=== PATIENT | female | born 1960 | race Caucasian/White ===

== ENCOUNTER 2025-03-26 17:29 | Emergency (ER) | payer OTHER, SELFPAY ==
--- OUTSIDE RECORDS SUMMARY | 2025-03-07 08:20 | XMS_ITS | Encounter Summary ---
Author Organization [facility] Address [address] [place] [address] Care Team Providers Care Field Staff Manager Name Role Phone Fan John MD Primary Care Provider + [phone] Encounter Details Date Type Department Care Team (Late st Contact Info) Description 03/07/2025 8:20 AM CDT Lab Visit Laboratory at [address] [id number] Hypothyroidism, unspecified type (HRC); Elevated ALT measurement; Type 2 diabetes mellitus without complication, without long-term current use of insulin (HRC) Social History Tobacco Use Types Packs/Day Years Used Date Smoking Tobacco: Never Smokeless Tobacco: Never Alcohol Use Standard Drinks/Week Comments Not Currently 1 (1 standard drink = 0.6 oz pur e alcohol) Once a week PHQ-2 Answer Date Recorded PHQ-2 Score 0 07/12/2024 Comments No Sex and Gender Information Value Date Recorded Sex Assigned at Female 01/11/2025 11:19 AM CDT Legal Sex Female 4:58 AM CDT Gender Identity Female 01/11/2025 11:19 AM CDT Sexual Orientation Straight 01/11/2025 11 :19 AM CDT 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 on file Not on file documented as of this encounter Plan of Treatment Not on file documented as of this encounter Procedures Procedure Name Priority Date/Time Associated Diagnosis Comments HGB A1C Routine 03/07/2025 8:39 AM CDT Type 2 diabetes mellitus without complication, without long-term current use of insulin (HRC) TSH, SENSITIVE Routine 03/07/2025 8:22 AM CDT Hypothyroidism, unspecified type (HRC) ALT (SGPT) Routine 03/07/2025 8:22 AM CDT Elevated ALT measurement documented in this encounter Results * (ABNORMAL) Hgb A1C (03/07/2025 8:39 AM CDT) Hemoglobin A1C 6.3(H) <=5.6 % 03/07/2025 11:53 AM CDT [facility] Estimated Average Glucose (Calc) 134 < 117 mg/dL 03/07/2025 11:53 AM CDT [facility] Comment:Estimated average gl ucose (eAG) converts A1c into glucose units (mg/dL) and estimates average glucose over the past approximately 3 months. The eAG reference interval (<117 mg/dL) corresponds to an A1c of <5.7%. Blood Venipuncture / Unknown 03/07/2025 8:39 AM CDT 03/07/2025 8:39 AM CDT Narrative [facility] - 03/07/2025 11:53 AM CDT For patients not previously diagnosed with diabetes: 5.7-6.4%: Increased risk for diabetes 6.5% and greater: Diagnostic for diabetes For patients diagnosed with diabetes: <8.0%: Goal of therapy for ages 18-75 Clinicians may recommend a higher or lower goal for specific individuals. us Fan John MD LAB_1 Final Result [facility] [address] * (ABNORMAL) ALT (SGPT) (03/07/2025 8:22 AM CDT) ALT (SGPT) 57(H) 0 - 55 U/L 03/07/2025 11:53 AM CDT [facility] Blood Venipuncture / Unknown 03/07/2025 8:22 AM CDT 03/07/2025 8:22 AM CDT Fan John MD LAB_1 Final Result Performing Organization Address [facility] Co de Phone Number [facility] [address] * (ABNORMAL) TSH (03/07/2025 8:22 AM CDT) TSH, Sensitive 5.75(H) 0.30 - 4.50 uIU/mL 03/07/2025 12:06 PM CDT [facility] Blood Venipuncture / Unknown 03/07/2025 8:22 AM CDT 03/07/2025 8:22 AM CDT Fan John MD LAB_1 Final Result Performing Organization Address [facility] Co de Phone Number [facility] [address] documented in this encounter Visit Diagnoses Diagnosis Hypothyroidism, unspecified type (HRC) Elevated ALT measurement Nonspecific elevation of levels of transaminase or lactic acid dehydrogenase (LDH) Type 2 diabetes mellitus without complication, without long-term current use of insulin (HRC) documented in this encounter Care Teams Field Staff Manager Relationship Specialty [place] [address] [place] [address] PCP - General Family Practice 08/21/22 documented as of this encounter
--- OUTSIDE RECORDS SUMMARY | 2025-03-12 15:45 | XMS_ITS | Encounter Summary ---
[facility] Address [address], [place] [address] Care Team Providers Care Energy Director Name Role Phone Fan John MD Primary Care Provider [phone] Reason for Visit * Reason Comments RESULTS, TEST Entered automaticall y based on patient selection in [employer] 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
[2025-03-26 17:47] VITALS: BP 138/85; PULSE 89; RESP 18; TEMP 36.2; O2SAT 94; BMI 30.4
[2025-03-26 18:06] LABS: Appearance Urine Clear (Clear)
--- OUTSIDE RECORDS SUMMARY | 2025-03-26 18:22 | XMS_ITS | Encounter Summary ---
Author Organization [facility] Address [address] [address] Care Team Providers Care Senior Ssis Developer Name Role Phone Fan John MD Primary Care Provider [phone] Encounter Details Date Type Department Care Team (Latest Contact Info) Description 12/07/1996 Orders Only Nevaeh Charles Social History Tobacco Use Types Packs/Day Years Used Date Smoking Tobacco: Never Assessed Comments Unknown Sex and Gender Information Value Date Recorded Sex Assigned at Female 01/11/2025 11:19 AM CDT Legal Sex Female 4:58 AM CDT Gender Identity Female 01/11/2025 11:19 AM CDT Sexual Orientation Straight 01/11/2025 11 :19 AM CDT documented as of this encounter Plan of Treatment Not on file documented as of this encounter Visit Diagnoses Not on filedocumented in this encounter Care Teams Senior Ssis Developer Relationship Specialty [place] [address] [place] [address] PCP - General Family Practice 08/21/22 documented as of this encounter
--- OUTSIDE RECORDS SUMMARY | 2025-03-26 18:22 | XMS_ITS | Encounter Summary ---
Author Organization Counts include 234 beds at the [facility] Address [address], [place] [address] Care Team Providers Care Health Care Liaison Name Role Phone Fan John MD Primary Care Provider [phone] Encounter Details Date Type Department Care Team (Latest Contact Info) Description 12/08/1997 Orders Only Marc Banks MD Social History Tobacco Use Types Packs/Day Years [...] on filedocumented in this encounter Care Teams Health Care Liaison Relationship Specialty [place] [address] [place] [address] PCP - General Family Practice 08/21/22 documented as of this encounter
--- OUTSIDE RECORDS SUMMARY | 2025-03-26 18:22 | XMS_ITS | Encounter Summary ---
Author Organization [facility] Address [address] [address] Care Team Providers Care Pie Topper Name Role Phone Fan John MD Primary Care Provider [phone] Encounter Details Date Type Department Care Team (Latest Contact Info) Description 01/26/1997 Orders Only Nevaeh Charles Social History Tobacco [...] on filedocumented in this encounter Care Teams Pie Topper Relationship Specialty [place] [address] [place] [address] PCP - General Family Practice 08/21/22 documented as of this encounter
--- OUTSIDE RECORDS SUMMARY | 2025-03-26 18:22 | XMS_ITS | Encounter Summary ---
Author Organization [facility] Address [address], [place] [address] Care Team Providers Care Tube Cutter Operator Name Role Phone Fan John MD Primary Care Provider + [phone] Encounter Details Date Type Department Care Team (Late st Contact Info) Description 12/24/2024 [facility] [address] [place] [address] [address], [place] [address] [place], [place] [id number] Social History Tobacco Use Types Packs/Day Years Used Date Smoking Tobacco: Never Smokeless Tobacco: Never Alcohol Use Standard Drinks/Week Comments Yes 1.7 (1 standard drink = 0.6 oz p ure alcohol) 3x/wk PHQ-2 Answer Date Recorded PHQ-2 Score 0 07/12/2024 Comments No Sex and Gender Information Value Date Recorded Sex Assigned at Female 01/11/2025 11:19 AM CDT Legal Sex Female 4:58 AM CDT Gender Identity Female 01/11/2025 11:19 AM CDT Sexual Orientation Straight 01/11/2025 11 :19 AM CDT 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
--- OUTSIDE RECORDS SUMMARY | 2025-03-26 18:22 | XMS_ITS | Encounter Summary ---
Author Organization [facility] Address [address], [place] [address] Care Team Providers Care Grades 1 Through 5 Teacher Name Role Phone Fan John MD Primary Care Provider [phone] Encounter Details Date Type Department Care Team (Latest Contact Info) Description 05/09/1997 Orders Only Esvin Reyes MD Social History Tobacco Use Types Packs/Day [...] on filedocumented in this encounter Care Teams Grades 1 Through 5 Teacher Relationship Specialty [place] [address] [place] [address] PCP - General Family Practice 08/21/22 documented as of this encounter
--- OUTSIDE RECORDS SUMMARY | 2025-03-26 18:22 | XMS_ITS | Encounter Summary ---
Author Organization [facility] Address [address], [place] [address] Care Team Providers Care Wide Area Network Systems Administrator Name Role Phone Fan John MD Primary Care Provider [phone] Encounter Details Date Type Department Care Team (Latest Contact Info) Description 07/03/1996 Orders Only Bozena Garza Social History Tobacco Use Types Packs/Day Years [...] on filedocumented in this encounter Care Teams Wide Area Network Systems Administrator Relationship Specialty [place] [address] [place] [address] PCP - General Family Practice 08/21/22 documented as of this encounter
--- OUTSIDE RECORDS SUMMARY | 2025-03-26 18:22 | XMS_ITS | Clinical Summary ---
Author Organization [facility] Address [address] [address] Care Team Providers Care Jig And Fixture Maker Name Role Phone Fan John MD Primary Care Provider + [phone] Source Comments You are receiving this document as you are listed as the primary care provider,follow-up provider, or the patient has been referred to you for consultation.This is in compliance with the Medicare andMedicaid EHR Incentive Program,which states Providers who transition their patient to another setting of careor provider of care or refers their patient to another provider of care shouldprovide summary care record for each transition of care or referral. [employer] Allergies Active Allergy Reactions Criticality Noted Date Comments Corticosteroids 10/10/2000 Methylprednisolone Headache migraines Hydrocodone-Acetaminophen Nausea And Vomiting 0 11/27/2016 Paroxetine Prednisone Omeprazole Magnesium Dizziness,Headache, N ausea,Vomiting High 11/02/2008 Serotonin Reuptake Inhibitor s (Ssris) 10/10/2000 Medications cholecalciferol (VITAMIND3) 25 MCG (1000 UT) capsule Take 2 Capsules (2,000 Units) by mouth daily. Active vitamin E 200 UNITS capsule Take 1 Capsule (200 Units) by mouth daily. 017 Active amLODIPine (NORVASC) 5 MG tabletIndications:Esse ntial hypertension (HRC) Take 1 Tablet (5 mg) by mouth daily. 90 Tablet 3 024 Active rosuvastatin (CRESTOR) 10 MG tabletIndications:Pure hypercholesterolemia Take 1 Tablet (10 mg) by mouth daily. 90 Tablet 3 024 Active metFORMIN XR (GLUCOPHAGE XR) 500 MG 24 hour release tabletIndications:Type 2 diabetes mellitus without complication, without long-term current use of insulin (HRC) Take 1 Tablet (500 mg) by mouth every evening with a meal. 90 Tablet 3 024 Active hydroCHLOROthiazide (ORETIC) 25 MG tabletIndications:Esse ntial hypertension (HRC) Take 1 Tablet (25 mg) by mouth daily. 90 Tablet 3 024 Active potassium chloride 20 MEQ/15ML (10%) solutionIndications:Es sential hypertension (HRC) TAKE 15ML BY MOUTH DAILY W/ MEAL.MIX EACH DOSE WITH AT LEAST 120ML OF COLD WATER OR JUICE BEFORE ADMINISTRAT ION. 450 mL 11 024 Active levothyroxine (SYNTHROID) 88 MCG tabletIndications:Hypo thyroidism, unspecified type (HRC) Take 1 Tablet (88 mcg) by mouth daily. 60 Tablet 025 Active levothyroxine (SYNTHROID) 88 MCG tabletIndications:Hypo thyroidism, unspecified type (HRC) Take 1 Tablet (88 mcg) by mouth daily. 90 Tablet 025 2024 Discontinued levothyroxine (SYNTHROID) 88 MCG tabletIndications:Hypo thyroidism, unspecified type (HRC) TAKE 1 TABLET BY MOUTH EVERY DAY - BRAND SYNTHROID IS NOT COVERED BY INSURANCE 15 Tablet 025 2024 Discontinued( *Med change OR same med OR reorder, new dose/directio ns) Active Problems Problem Noted Date Diagnosed Date Type 2 diabetes mellitus wit hout complication, without long-term current use of insulin 06/24/2023 Atypical chest pain 08/25/2018 Cervical cancer screening 04/23/2016 Overview (03/26/2017): From visit on 04/18/16: History of abnormal pap tests? Yes; Age: 2010 ( don't see anything on her flowsheet from 2011, but I do see she had CIN1 in 1999) 2009 NILM, neg HPV 2011 NILM 2015 NILM, neg HPV 55 y.o. Plan: Cotesting 04/2021 ; Pap test history Insomnia 04/18/2016 Increased risk of breast cancer 04/18/2016 Urticaria 08/21/2010 Overview (03/26/2017): Urticaria.tomatoes,squash Hypothyroidism 08/01/2008 Overview (05/04/2015): [facility] Family history of coronary artery disease 2007 Hereditary and idiopathic peripheral neuropathy 09/12/2006 Overview (05/04/2015): [facility] Family history of diabetes mellitus 09/12/2006 Obesity 08/29/2006 Overview (05/04/2015): [facility] Essential hypertension 02/18/2003 Overview (05/04/2015): [facility] Pure hypercholesterolemia 02/18/2003 Encounters Date Type Department Care Team Description 03/15/[address] [phone] Fan John MD Refill; ERRONEOUS ENTRY 03/12/2025 3:45 PM CDT E-Visit [address] [phone] Fan John MD Dx: Hypothyroidism, unspecified type (HRC) 03/10/2025 Results Follow-Up [address] [phone] Fan John MD 03/07/2025 8:20 AM CDT Lab Visit Laboratory at [address] [phone] Hypothyroidism, unspecified type (HRC); Elevated ALT measurement; Type 2 diabetes mellitus without complication, without long-term current use of insulin (HRC) 02/28/[address] [phone] Fan John MD Refill (SYNTHROID 88 MCG tablet [Pharmacy Med Name: SYNTHROID 88 MCG TABLET]) 01/19/2025 9:15 AM CDT Therapy [facility] [address] [address] Sandhya Draper, PT Acute pain of right knee (Primary Dx); Acute right ankle pain; Status post fall 01/18/2025 9:00 AM CDT Office Visit [facility] [address] [place] [phone] Landry Chavez, FLORESITA Right knee pain, unspecified chronicity (Primary Dx); Primary osteoarthritis of right knee 01/13/2025 10:15 AM CDT Therapy [facility] [place] [id number] [place] [id number] Mary Anderson, PT Acute pain of right knee (Primary Dx); Acute right ankle pain; Status post fall 01/11/2025 9:00 AM CDT Office Visit [facility] [id number] [place] [phone] Landry Chavez PA-C Right knee pain, unspecified chronicity (Primary Dx); Primary osteoarthritis of right knee 01/11/2025 Telephone [facility] [address] [place] [phone] Landry Chavez PA-C Prior Authorization Request 12/31/2024 9:00 AM CDT Office Visit [facility] [id number] [place] [phone] Catracho Downs R, DO Complex tear of medial meniscus of right knee as current injury, initial encounter (Primary Dx); Acute pain of right knee 12/31/2024 8:30 AM CDT Ancillary Procedure [facility] [address] [address] [place] [address] [phone] Aleksey Thomson MD Injury of right knee, leg ankle and foot, initial encounter; Internal derangement of right knee; Effusion of right knee 12/28/2024 5:25 PM CDT Ancillary Procedure [facility] [address] [place] [phone] Aleksey Thomson MD Injury of right knee, leg ankle and foot, initial encounter 12/28/2024 5:20 PM CDT Ancillary Procedure [facility] [address] [address] [address] [place] [phone] Aleksey Thomson MD Injury of right knee, leg ankle and foot, initial encounter 12/28/2024 5:10 PM CDT Office Visit [facility] [address] [place] [phone] Aleksey Thomson MD Injury of right knee, leg ankle and foot, initial encounter; Internal derangement of right knee; Effusion of right knee 12/28/2024 3:50 PM CDT Office Visit [address] [phone] Fan John MD Hypothyroidism, unspecified type (HRC) (Primary Dx); Dislocation of right knee, initial encounter; Elevated ALT measurement; Type 2 diabetes mellitus without complication, without long-term current use of insulin (HRC) 12/27/2024 10:10 AM CDT E-Visit [address] [phone] Fan John MD Chief Comp: QUESTIONS, GENERAL 12/24/2024 Results Follow-Up [facility] [address] [place] [address] Cami Rincon PA-C from Last 3 Months Immunizations Immunization Administration Dates Next Due Flu Vac (3+ yrs) 04/04/2017, 6,04/14/2013,2007,06/06/2007,08/17/2004,06/17/2003 Flu Vac Preserv Free (3+yrs) 04/15/2016 Influenza (Flucelvax) 04/25/2024 Influenza (Flucelvax), Prese rv Free QIV 04/17/2023 Influenza IIV4 (Quadrivalent ) 0.5mL (31644) 04/17/2023,07/15/2022,05/30/2021,2020,08/07/2020,04/15/2019,04/14/2019,1 ,03/29/2017,05/10/2015 Influenza Vaccine (3+years) ([facility]) 06/18/2008,06/06/2007 Influenza, Unspecified Formulation 06/06/1998,,07/10/1995 Moderna Bivalent 12+ 07/19/2022 Moderna COVID-19 12+ 05/14/2023 Moderna Monovalent 12+ 07/04/2021,12/11/2020,07/2021 Pfizer COVID-19 12+ 04/25/2024 RSV Arexvy 08/18/2023 Td 06/21/1996 Td (7+ yrs) 06/12/2017 Td, Preservative Free 06/12/2017 Tdap 09/12/2006 Varicella 06/08/1998(Deferred: Immune by Bushra hernandez) Family History Medical History Relation Name Comments Asthma Father Father COPD Father Father Cancer, Other Father Father Cataract Father Father Hearing Loss Father Father Heart Attack Father Father 74 y.o. Hypertension Father Father Lung disorder Father Father Cataract Mother Mother Diabetes Mother Mother Diabetes, Type II Mother Mother Glaucoma Mother Mother Hearing Loss Mother Mother Heart disorder Mother Mother Hypertension Mother Mother Other Mother Mother arthritis Thyroid Disorder Mother Mother Cancer, Other Brother 3 Brother Diabetes Brother 3 Brother Heart disorder Brother 3 Brother Hypertension Brother 3 Brother Heart disorder Maternal Grandfather None Hypertension Maternal Grandfather None Cataract Maternal Grandmother Grandmother Heart disorder Maternal Grandmother Grandmother Hypertension Maternal Grandmother Grandmother Thyroid Disorder Maternal Grandmother Grandmother Cancer, Breast Other Paternal 1st cousin 27 Cancer, Breast Sister 1 Asthma Sister 3 Sister Cancer Sister 3 Sister 2 had breast ca ncer Cancer, Breast Sister 3 Sister Cancer, Other Sister 3 Sister Thyroid Disorder Sister 3 Sister Amblyopia/Strabismus Negative Family History Cancer, Ovary Negative Family History Macular Degeneration Negative Family History Retinal Detachment Negative Family History Relation Name Status Comments Father Father 04/10/12--COPD He art Attack Mother Mother Alive Brother 1 Alive Brother 2 Alive Brother 3 Brother Maternal Grandfather None 1963 Maternal Grandmother Grandmother 1988 Other Alive Paternal Grandfather 1961 Paternal Grandmother 1979 Sister 1 Alive Sister 2 Alive Sister 3 Sister Social History Tobacco Use Types Packs/Day Years Used Date Smoking Tobacco: Never Smokeless Tobacco: Never Tobacco Cessation:Counseling Given: Not Answered Alcohol Use Standard Drinks/Week Comments Not Currently [...] 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 Not on file Not on file Last Filed Vital Signs Vital Sign Reading Time Taken Comments Blood Pressure 126/82 12/28/2024 5:08 PM CDT Pulse 93 12/28/2024 3:36 PM CDT Temperature 37.1 C (98.7 F) 12/31/2024 9:23 AM CDT Respiratory Rate 16 09/02/2022 10:30 AM CEREAL MAKER Oxygen Saturation 98% 09/02/2022 10:30 AM CEREAL MAKER Inhaled Oxygen Concentration - - Weight 81.2 kg (179 lb) 07/12/2024 9:57 AM CEREAL MAKER Height 161.3 cm (5' 3.5) 08/25/2023 9:52 AM CEREAL MAKER Body Mass Index 31.21 08/25/2023 9:52 AM CEREAL MAKER Plan of Treatment Health Maintenance Due Date Last Done Comments Hep B Immunization Discussion 1961 Pneumococcal Vaccine 50+ Yrs (1 of 2 - PCV) 1980 Zoster/Shingles Vaccine (1 of 2) 11/09/2011 Cervical Cancer Screening 04/18/20212015, 08/29/2011, 10/04/2009, Additional history exists Adult Preventive Visit 07/15/2023 2, 09/15/2018, 04/18/2016, Additional history exists Influenza Vaccine (#1) 2025 4, 04/17/2023, 04/17/2023, Additional history exists Diabetes: Creatinine 07/12/2025 07/12/2024, 06/24/2023, 07/15/2022, Additional history exists Diabetes: Foot Exam 07/12/2025 07/12/2024, 06/24/2023, 07/19/2022 Mammogram 07/24/2025 07/24/2024, 04/2 , 06/12/2021, Additional history exists Diabetes: Eye Exam 09/07/2025 09/07/2024, 0 09/07/2024, 09/05/2023, Additional history exists Diabetes: HGBA1C 09/07/2025 03/07/2025, , 07/12/2024, Additional history exists Diabetes: Albumin/Creatinine Ratio, Urine 12/23/2025 12/23/2024, 07/12/2024, 06/24/2023, Additional history exists Colonoscopy 05/21/2026 05/21/2016 DTaP/Tdap/Td Vaccine (4 - Tdap) 06/12/2027 06/12/2017, 06/12/2017, 09/12/2006, Additional history exists Diabetes: Lipid Panel 06/24/2028 06/24/2023 , 07/15/2022, 05/30/2021, Additional history exists HIV Screening (Preventive Services) Completed 08/10/2008 Hep C Screening (Preventive Services) Completed 08/10/2008 Cholesterol Discontinued 06/24/2023, 07/04, 05/30/2021, Additional history exists RSV Vaccine Completed 08/18/2023 COVID-19 Vaccine Completed 04/25/2024, 06/2023, 07/19/2022, Additional history exists HepA Vaccine Aged Out No longer eligi ble based on patient's age to complete this topic HepB Vaccine Aged Out No longer eligi ble based on patient's age to complete this topic Hib Vaccine Aged Out No longer eligi ble based on patient's age to complete this topic IPV (Polio) Vaccine Aged Out No longe r eligible based on patient's age to complete this topic MCV4 Vaccine Aged Out No longer eligi ble based on patient's age to complete this topic Meningococcal B Vaccine Aged Out No l onger eligible based on patient's age to complete this topic Medical Devices Implanted Type [employer] Device Identifier Shelf Expiration Date Model / Serial / Lot I.U.D. Bladimir - [id number] Implanted:Qty: 1 on 09/25/2011 at [facility] DEVICE [employer] 04/04/2014 [id number] / N/A / [id number] Procedures Procedure Name Priority Date/Time Associated Diagnosis Comments HGB A1C Routine 03/07/2025 8:39 AM CDT Type 2 diabetes mellitus without complication, without long-term current use of insulin (HRC) ALT (SGPT) Routine 03/07/2025 8:22 AM CDT Elevated ALT measurement TSH, SENSITIVE Routine 03/07/2025 8:22 AM CDT Hypothyroidism, unspecified type (HRC) MR KNEE RT WO IV CONT Routine 12/31/2024 8:28 AM CDT Injury of right knee, leg ankle and foot, initial encounter Internal derangement of right knee Effusion of right knee XR KNEE LT 1-2 VIEWS COMPARISON Routine 12/28/2024 5:25 PM CDT Injury of right knee, leg ankle and foot, initial encounter XR KNEE RT 3 VIEWS Routine 12/28/2024 5: 24 PM CDT Injury of right knee, leg ankle and foot, initial encounter ALBUMIN/CREAT RATIO Routine 12/23/2024 10:00 AM CDT Type 2 diabetes mellitus without complication, without long-term current use of insulin (HRC) MM MAMMOGRAM SCREENING BILAT W CAD Routine 07/24/2024 9:37 AM CEREAL MAKER Encounter for screening mammogram for malignant neoplasm of breast BASIC METABOLIC PANEL Routine 07/12/2024 10:37 AM CEREAL MAKER Essential hypertension (HRC) LIPID PANEL & DIRECT LDL (IF NEEDED) Routine 06/24/2023 10:32 AM CEREAL MAKER Pure hypercholesterolemia COLONOSCOPY Routine 05/21/2016 9:58 AM CDT Screen for colon cancer PAP TEST, ROUTINE Routine 04/18/2016 9:3 9 AM CDT Screening for cervical cancer HIV ANTIBODY Routine 08/10/2008 4:40 PM CEREAL MAKER Positive Rizwana HEPATITIS C ANTIBODY, WITH REFLEX (ANTI-HCV) Routine 08/10/2008 4:40 PM CEREAL MAKER Positive Riz[place]ana from Last 3 Months or Most Recently Relevant to Health Maintenance Results * (ABNORMAL) Hgb A1C (03/07/2025 8:39 AM CDT) Hemoglobin A1C 6.3(H) <=5.6 % 03/07/2025 11:53 AM CDT [facility] Estimated Average Glucose (Calc) 134 < 117 mg/dL 03/07/2025 11:53 AM CDT [facility] Comment:Estimated average gl ucose (eAG) converts A1c into glucose units (mg/dL) and estimates average glucose over the past approximately 3 months. The eAG reference interval (<117 mg/dL) corresponds to an A1c of <5.7%. Blood Venipuncture / Unknown 03/07/2025 8:39 AM CDT 03/07/2025 8:39 AM CDT Narrative [facility] - 03/07/2025 11:53 AM CDT For patients not previously diagnosed with diabetes: 5.7-6.4%: Increased risk for diabetes 6.5% and greater: Diagnostic for diabetes For patients diagnosed with diabetes: <8.0%: Goal of therapy for ages 18-75 Clinicians may recommend a higher or lower goal for specific individuals. us Fan John MD LAB_1 Final Result [facility] [address] [place] [address], [facility] * (ABNORMAL) TSH (03/07/2025 8:22 AM CDT) TSH, Sensitive 5.75(H) 0.30 - 4.50 uIU/mL 03/07/2025 12:06 PM CDT [facility] Blood Venipuncture / Unknown 03/07/2025 8:22 AM CDT 03/07/2025 8:22 AM CDT Fan John MD LAB_1 Final Result Performing Organization Address [facility] de Phone Number [facility] [address] * (ABNORMAL) ALT (SGPT) (03/07/2025 8:22 AM CDT) ALT (SGPT) 57(H) 0 - 55 U/L 03/07/2025 11:53 AM CDT [facility] Blood Venipuncture / Unknown 03/07/2025 8:22 AM CDT 03/07/2025 8:22 AM CDT Fan John MD LAB_1 Final Result Performing Organization Address [facility] de Phone Number [facility] [address] [place] [address] * MR Knee Rt WO IV Cont (12/31/2024 8:28 AM CDT) Anatomical Region Laterality Modality Lower Extremity, Knee, Skeletal, Thigh, Leg, MSK Right Magnetic Resonance 12/31/2024 7:58 AM CDT Impressions 12/31/2024 9:07 AM CDT 1. Tiny oblique tear along the tibial surface of the medial meniscus posterior horn. 2. Partial-thickness degenerative appearing tear in the posterior root ligament of the lateral meniscus. 3. 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 4. Small joint effusion with evidence of synovitis. Narrative 12/31/2024 9:07 AM CDT COMPARISON: 12/28/2024 TECHNIQUE: Routine MRI of the right knee was performed without contrast. FINDINGS: MEDIAL COMPARTMENT: High-grade and full thickness chondromalacia throughout the weightbearing cartilage with associated subchondral cystic change along the central aspect of the femoral condyle. Tiny oblique tear along the tibial surface of the medial meniscus posterior horn seen on series 7 image 18 and series 5 image 8. LATERAL COMPARTMENT: Low-grade chondromalacia throughout the weightbearing cartilage. Increased T2 signal and fraying in the posterior root ligament suspicious for partial thickness tearing. No lateral meniscus tear otherwise. PATELLOFEMORAL JOINT: Scattered areas of full-thickness cartilage throughout the patellar cartilage and medial femoral trochlea. Small joint effusion with evidence of synovitis. No osteocartilaginous bodies are identified. LIGAMENTS AND TENDONS: The anterior and posterior cruciate ligaments, medial collateral ligament, iliotibial band, fibular collateral ligament and biceps femoris tendons are intact. The popliteus muscle and tendon are normal. There is no evidence of injury to the posterolateral corner supporting structures. EXTENSOR MECHANISM: The quadriceps and patellar tendons are normal. The medial retinaculum, medial patellofemoral ligament, and lateral retinaculum are normal. MARROW AND SOFT TISSUES: No fracture or osteonecrosis. Procedure Note Trevor Whitten MD - 12/31/2024 COMPARISON: 12/28/2024 TECHNIQUE: Routine MRI of the right knee was performed withoutcontrast. FINDINGS: MEDIAL COMPARTMENT: High-grade and full thickness chondromalaciathroughout the weightbearing cartilage with associated subchondral cysticchange along the central aspect of the femoral condyle. Tiny oblique tearalong the tibial surface of the medial meniscus posterior horn seen onseries 7 image 18 and series 5 image 8. LATERAL COMPARTMENT: Low-grade chondromalacia throughout theweightbearing cartilage. Increased T2 signal and fraying in the posteriorroot ligament suspicious for partial thickness tearing. No lateralmeniscus tear otherwise. PATELLOFEMORAL JOINT: Scattered areas of full-thickness cartilagethroughout the patellar cartilage and medial femoral trochlea. Small jointeffusion with evidence of synovitis. No osteocartilaginous bodies areidentified. LIGAMENTS AND TENDONS: The anterior and posterior cruciate ligaments,medial collateral ligament, iliotibial band, fibular collateral ligamentand biceps femoris tendons are intact. The popliteus muscle and tendon arenormal. There is no evidence of injury to the posterolateral cornersupporting structures. EXTENSOR MECHANISM: The quadriceps and patellar tendons are normal. Themedial retinaculum, medial patellofemoral ligament, and lateralretinaculum are normal. MARROW AND SOFT TISSUES: No fracture or osteonecrosis. IMPRESSION 1. Tiny oblique tear along the tibial surface of the medial meniscusposterior horn. 2. Partial-thickness degenerative appearing tear in the posterior rootligament of the lateral meniscus. 3. Tricompartmental chondromalacia most pronounced in the patellofemoralcompartment where it is moderate to advanced. 4. Small joint effusion with evidence of synovitis. Aleksey Thomson MD RAD MRI Final Result * XR Knee Lt 1-2 Views Comparison (12/28/2024 5:25 PM CDT) Anatomical Region Laterality Modality Lower Extremity, Knee Digital Ra diography 12/28/2024 5:15 PM CDT Narrative 12/28/2024 5:33 PM CDT COMPARISON: None. FINDINGS: Right knee: Mild osteoarthritis in the medial and patellofemoral compartments. Small joint effusion. No acute fractures or dislocations. Left knee: Mild osteoarthritis in the medial compartment. No acute findings. Procedure Note Luc Rivera MD - 12/28/2024 COMPARISON: None. FINDINGS: Right knee: Mild osteoarthritis in the medial andpatellofemoral compartments. Small joint effusion. No acute fractures ordislocations. Left knee: Mild osteoarthritis in the medial compartment. No acutefindings. us Aleksey Thomson MD RAD GD Final Result * XR Knee Rt 3 Views (12/28/2024 5:24 PM CDT) Anatomical Region Laterality Modality Lower Extremity, Knee Digital Ra diography 12/28/2024 5:15 PM CDT Narrative 12/28/2024 5:33 PM CDT COMPARISON: None. FINDINGS: Right knee: Mild osteoarthritis in the medial and patellofemoral compartments. Small joint effusion. No acute fractures or dislocations. Left knee: Mild osteoarthritis in the medial compartment. No acute findings. Procedure Note Luc Rivera MD - 12/28/2024 COMPARISON: None. FINDINGS: Right knee: Mild osteoarthritis in the medial andpatellofemoral compartments. Small joint effusion. No acute fractures ordislocations. Left knee: Mild osteoarthritis in the medial compartment. No acutefindings. us Aleksey Thomson MD RAD GD Final Result * Albumin/Creatinine Ratio,Random Urine (12/23/2024 10:00 AM CDT) Albumin/Creati nine Ratio, Urine, Random 6 <30 mg/g 12/23/2024 6:26 PM CDT [facility] Albumin, Urine, Random 5.3 mg/L 12/23/2024 6:26 PM CDT [facility] Creatinine, Urine, Random 88 >20 mg/dL mg/dL 12/23/2024 6:26 PM CDT [facility] Urine Non-blood Collection / Unknown 12/23/2024 10:00 AM CDT 12/23/2024 10:00 AM CDT us Fan John MD LAB_1 Final Result [facility] [address] * MM Mammogram Screening Bilat W CAD (07/24/2024 9:37 AM CEREAL MAKER) Anatomical Region Laterality Modality Breast Bilateral Mammography Impressions 07/26/2024 5:06 AM CEREAL MAKER : ACR BI-RADS Category 1: Negative RECOMMENDATION: Follow Up Imaging in 12 months - Bilateral The results and recommendations of this examination will be communicated to the patient. Narrative 07/26/2024 5:06 AM CEREAL MAKER MM MAMMOGRAM SCREENING BILAT W CAD performed on 07/24/24 FDA Accredited Facility: [place] [id number] Compared to: 11/21/2022 MM Mammogram Screening Bilat W CAD, 09/15/2018 MM Mammogram Screening Bilat W CAD, and 04/18/2016 MM Mammogram Screening Bilat W CAD FINDINGS: Bilateral screening mammogram was performed with the assistance of Computer-Aided Detection . There are scattered areas of fibroglandular density. There is no radiographic evidence of malignancy. Fan John MD RAD ROBERT Final Result * (ABNORMAL) Basic Metabolic Panel (07/12/2024 10:37 AM CEREAL MAKER) Sodium 139 136 - 145 mmol/L 07/12/2024 5:30 PM [facility] Potassium 4.0 3.5 - 5.1 mmol/L 07/12/2024 5:30 PM [facility] Chloride 104 98 - 109 mmol/L 07/12/2024 5:30 PM [facility] CO2 23 20 - 29 mmol/L 07/12/2024 5:30 PM [facility] Anion Gap 12 6 - 16 mmol/L 07/12/2024 5:30 PM [facility] Calcium 10.4 8.4 - 10.4 mg/dL 07/12/2024 5:30 PM [facility] BUN 11 7 - 26 mg/dL 07/12/2024 5:30 PM [facility] Creatinine 0.76 0.55 - 1.02 mg/dL 07/12/2024 5:30 PM [facility] Glucose 134(H) 70 - 100 mg/dL 07/12/2024 5:30 PM [facility] Comment:The given reference range is for the fasting state. Non-fasting reference range for glucose is 70 - 180 mg/dL. GFR, Estimated >60 >60 mL/min/1. 73m2 07/12/2024 5:30 PM [facility] Hours Fasting 12.0 8 - 12 Hours 07/12/2024 5:30 PM [facility] Blood Venipuncture / Unknown 07/12/2024 10:37 AM CEREAL MAKER 07/12/2024 10:40 AM CEREAL MAKER Fan John MD LAB_1 Final Result [facility] [address] [address] [address] [place] [address] * Lipid Panel & Direct LDL (if Needed) (06/24/2023 10:32 AM CEREAL MAKER) Cholesterol 143 0 - 199 mg/dL 06/24/2023 3:05 PM [facility] Triglyceride 107 <=149 mg/dL 06/24/2023 3:05 PM [facility] HDL Cholesterol 53 >=40 mg/dL 06/24/2023 3:05 PM [facility] LDL, Calculated 69 <130 mg/dL 06/24/2023 3:05 PM [facility] Non HDL Chol, Calculated 90 <=159 mg/dL 06/24/2023 3:05 PM [facility] Cholesterol/HDL Ratio 2.7 <=5.0 06/24/2023 3:05 PM [facility] Hours Fasting 16.0 8 - 12 Hours 06/24/2023 3:05 PM [facility] Blood Venipuncture / Unknown 06/24/2023 10:32 AM CEREAL MAKER 06/24/2023 10:32 AM CEREAL MAKER Fan John MD LAB_1 Final Result [facility] [address] [address] [phone] * COLONOSCOPY [[id number]] (05/21/2016 9:58 AM CDT) 05/21/2016 9:58 AM CDT Narrative [facility] ([facility]) - 05/21/2016 10:29 AM CDT Instrument Name: 181 Indications: Screening for colorectal malignant neoplasm Providers: Corey Medeiros MD, Belem Carranza RN, Pema Baez LPN Referring MD: Medicines: Fentanyl 100 micrograms IV, Midazolam 2 mg IV Complications: No immediate complications. Procedure: Pre-Anesthesia Assessment: - Airway Examination: normal oropharyngeal airway and neck mobility. - ASA Grade Assessment: II - A patient with mild systemic disease. After I obtained informed consent, the scope was passed under direct vision. Prior to sedation, patient identity and procedure was reverified. Throughout the procedure, the patient's blood pressure, pulse, and oxygen saturations were monitored continuously. The PCF-H190L was introduced through the anus and advanced to the cecum, identified by appendiceal orifice and ileocecal valve. The colonoscopy was performed without difficulty. The patient tolerated the procedure well. The quality of the bowel preparation was excellent. Findings: The perianal and digital rectal examinations were normal. Anal papilla(e) were hypertrophied. The exam was otherwise without abnormality on direct and retroflexion views. Impression: - Anal papilla(e) were hypertrophied. - The examination was otherwise normal on direct and retroflexion views. - No specimens collected. Recommendation: - Discharge patient to home. - Refer to a colo-rectal surgeon for possible treatment of symptomatic hypertrophied anal papilla; the next available appointment. Procedure Code(s): --- Professional --- 45880, Colonoscopy, flexible; diagnostic, including collection of specimen(s) by brushing or washing, when performed (separate procedure) Diagnosis Code(s): --- Professional --- Z12.11, Encounter for screening for malignant neoplasm of colon K62.89, Other specified diseases of anus and rectum CPT copyright 2015 [employer]. All rights reserved. The codes documented in this report are preliminary and upon complaint investigations officer review may be revised to meet current compliance requirements. Attending Participation: MD Corey Infante MD 05/21/2016 10:29:29 AM Number of Addenda: 0 Note Initiated On: 05/21/2016 9:58 AM Procedure Note Corey Medeiros MD - 05/21/2016 Instrument Name: 181 Indications: Screening for colorectal malignant neoplasm Providers: Corey Medeiros MD, Belem Carranza RN, Pema Baez LPN Referring MD: Medicines: Fentanyl 100 micrograms IV, Midazolam 2 mg IV Complications: No immediate complications. Procedure: Pre-Anesthesia Assessment: - Airway Examination: normal oropharyngeal airway and neck mobility. - ASA Grade Assessment: II - A patient with mild systemic disease. After I obtained informed consent, the scope was passed under direct vision. Prior to sedation, patient identity and procedure was reverified. Throughout the procedure, the patient's blood pressure, pulse, and oxygen saturations were monitored continuously. The PCF-[id number] was introduced through the anus and advanced to the cecum, identified by appendiceal orifice and ileocecal valve. The colonoscopy was performed without difficulty. The patient tolerated the procedure well. The quality of the bowel preparation was excellent. Findings: The perianal and digital rectal examinations were normal. Anal papilla(e) were hypertrophied. The exam was otherwise without abnormality on direct and retroflexion views. Impression: - Anal papilla(e) were hypertrophied. - The examination was otherwise normal on direct and retroflexion views. - No specimens collected. Recommendation: - Discharge patient to home. - Refer to a colo-rectal surgeon for possible treatment of symptomatic hypertrophied anal papilla; the next available appointment. Procedure Code(s): --- Professional --- 48875, Colonoscopy, flexible; diagnostic, including collection of specimen(s) by brushing or washing, when performed (separate procedure) Diagnosis Code(s): --- Professional --- Z12.11, Encounter for screening for malignant neoplasm of colon K62.89, Other specified diseases of anus and rectum CPT copyright 2015 [employer]. All rights reserved. The codes documented in this report are preliminary and upon complaint investigations officer review may be revised to meet current compliance requirements. Attending Participation: MD Corey Infante MD 05/21/2016 10:29:29 AM Number of Addenda: 0 Note Initiated On: 05/21/2016 9:58 AM us Corey Medeiros MD DIGESTIVE CARE Final Result [facility] ([facility] [place] [place] * Pap Test, Routine (04/18/2016 9:39 AM CDT) Cytology, Pap (NOTE) Evaporator Helper Cytology Report Patient Name: ASHLEY CURIEL Taken: 04/18/2016 Received: 04/18/2016 Reported: 04/23/2016 Physician(s): RENEE VERA Source of Specimen Pap Test, Routine Cervical/Endocervi luigi: Specimen Adequacy Satisfactory for evaluation. Endocervical component present. Final Cytologic Interpretation/Res ult NEGATIVE FOR INTRAEPITHELIAL LESION OR MALIGNANCY (NILM) *Electronically Signed Out By Gavi BOOTH(ASCP)* Gavi BOOTH(ASCP) Pap Smear History Date of Last Menstrual Period: Menopausal Microscopic Description Microscopic examination is performed. [facility] Department of Pathology [address] [place] [address] [facility] 04/18/2016 9:39 AM CDT 04/18/2016 12:12 PM CDT Renee Vera MD LAB_1 Final Resul t Performing Organization Address [facility] de Phone Number [facility] [phone] * HEPATITIS C AB (08/10/2008 4:40 PM CEREAL MAKER) Anti-HCV Non-Reacti ve NR [facility] Comment:Does Not Rule Out In fection with HCV 08/10/2008 4:40 PM CEREAL MAKER 08/10/2008 4:58 PM CEREAL MAKER Hilda Otero MD LAB_1 Final Result Performing Organization Address [facility] Phone Number [address] [address] * HIV ANTIBODY (08/10/2008 4:40 PM CEREAL MAKER) HIV 1/2 Antibody Non-Reac tive [facility] Comment: This assay detects antibodies to HIV Type 1(including Group O)and HIV Type 2 by chemiluminescent immunoassay. 08/10/2008 4:40 PM CEREAL MAKER 08/10/2008 4:58 PM CEREAL MAKER Hilda Otero MD LAB_1 Final Result Performing Organization Address [facility] de Phone Number [address] [phone] from Last 3 Months or Most Recently Relevant to Health Maintenance Insurance [employer] CIGNA Advance Directives * Full Code (Latest Code Status on File) Date Activated Date Inactivated Comments 08/24/2018 3:42 PM 08/25/2018 2:36 PM * Full Code Date Activated Date Inactivated Comments 11/27/2016 7:33 PM 11/28/2016 3:39 PM * Full Code Date Activated Date Inactivated Comments 11/27/2016 11:01 AM 11/27/2016 7:33 PM * Full Code Date Activated Date Inactivated Comments 09/20/2016 9:03 AM 09/20/2016 4:15 PM * Full Code Date Activated Date Inactivated Comments 09/25/2011 6:20 AM 09/25/2011 3:30 PM Care Teams Jig And Fixture Maker Relationship Specialty [place] [address] [place] [address] PCP - General Family Practice 08/21/22
--- OUTSIDE RECORDS SUMMARY | 2025-03-26 18:22 | XMS_ITS | Encounter Summary ---
Author Organization [facility] Address [address], [place] [address] Care Team Providers Care Sales Exec Name Role Phone Fan John MD Primary Care Provider [phone] Encounter Details Date Type Department Care Team (Latest Contact Info) Description 12/21/1996 Orders Only Nevaeh Charles Social History Tobacco [...] on filedocumented in this encounter Care Teams Sales Exec Relationship Specialty [place] [address] [place] [address] PCP - General Family Practice 08/21/22 documented as of this encounter
--- OUTSIDE RECORDS SUMMARY | 2025-03-26 18:22 | XMS_ITS | Encounter Summary ---
Author Organization [facility] Address [address], [place] [address] Care Team Providers Care Online Publisher Name Role Phone Fan John MD Primary Care Provider [phone] Encounter Details Date Type Department Care Team (Latest Contact Info) Description 10/09/1998 Orders Only Laney Vilchis MD [address] [address] Social History Tobacco Use Types Packs/Day Years [...] on filedocumented in this encounter Care Teams Online Publisher Relationship Specialty [place] [address] [place] [address] PCP - General Family Practice 08/21/22 documented as of this encounter
--- OUTSIDE RECORDS SUMMARY | 2025-03-26 18:22 | XMS_ITS | Encounter Summary ---
Author Organization [facility] Address [address], [place] [address] Care Team Providers Care Farmworker Chicken Farm Name Role Phone Fan John MD Primary Care Provider [phone] Encounter Details Date Type Department Care Team (Latest Contact Info) Description 01/02/1996 Orders Only Marcelo Sterling Social History Tobacco Use Types Packs/Day Years [...] on filedocumented in this encounter Care Teams Farmworker Chicken Farm Relationship Specialty [place] [address] [place] [address] PCP - General Family Practice 08/21/22 documented as of this encounter
--- OUTSIDE RECORDS SUMMARY | 2025-03-26 18:22 | XMS_ITS | Encounter Summary ---
Author Organization [facility] Address [address] [address] Care Team Providers Care Tightener Name Role Phone Fan John MD Primary Care Provider [phone] Encounter Details Date Type Department Care Team (Latest Contact Info) Description 09/12/1995 Orders Only Nevaeh Charles Social History Tobacco [...] on filedocumented in this encounter Care Teams Tightener Relationship Specialty [place] [address] [place] [address] PCP - General Family Practice 08/21/22 documented as of this encounter
--- OUTSIDE RECORDS SUMMARY | 2025-03-26 18:22 | XMS_ITS | Encounter Summary ---
Author Organization [facility] Address [address], [place] [address] Care Team Providers Care Radiology Assistant Name Role Phone Fan John MD Primary Care Provider [phone] Encounter Details Date Type Department Care Team (Latest Contact Info) Description 03/28/1998 Orders Only Laney Vilchis MD [address] [address] Social History Tobacco Use Types Packs/Day Years [...] on filedocumented in this encounter Care Teams Radiology Assistant Relationship Specialty [place] [address] [place] [address] PCP - General Family Practice 08/21/22 documented as of this encounter
--- OUTSIDE RECORDS SUMMARY | 2025-03-26 18:22 | XMS_ITS | Encounter Summary ---
Author Organization [facility] Address [address], [place] [address] Care Team Providers Care Blending Kettle Tender Name Role Phone Fan John MD Primary Care Provider [phone] Encounter Details Date Type Department Care Team (Latest Contact Info) Description 07/10/1995 Orders Only Andre Diaz Social History Tobacco Use Types Packs/Day Years [...] on filedocumented in this encounter Care Teams Blending Kettle Tender Relationship Specialty [place] [address] [place] [address] PCP - General Family Practice 08/21/22 documented as of this encounter
--- OUTSIDE RECORDS SUMMARY | 2025-03-26 18:22 | XMS_ITS | Encounter Summary ---
Author Organization [facility] Address [address] [address] Care Team Providers Care Cloud Engagement Partner Name Role Phone Fan John MD Primary Care Provider [phone] Encounter Details Date Type Department Care Team (Latest Contact Info) Description 02/14/1996 Orders Only Haider Moy MD Social History Tobacco Use Types Packs/Day [...] on filedocumented in this encounter Care Teams Cloud Engagement Partner Relationship Specialty [place] [address] [place] [address] PCP - General Family Practice 08/21/22 documented as of this encounter
--- OUTSIDE RECORDS SUMMARY | 2025-03-26 18:22 | XMS_ITS | Encounter Summary ---
Author [facility] Address [address], [place] [address] Care Team Providers Care Buying Intern Name Role Phone Fan John MD Primary Care Provider [phone] Encounter Details Date Type Department Care Team (Latest Contact Info) Description 11/28/1998 Orders Only Laney Vilchis MD [address] [address] Social History Tobacco Use Types Packs/Day Years [...] on filedocumented in this encounter Care Teams Buying Intern Relationship Specialty [place] [address] [place] [address] PCP - General Family Practice 08/21/22 documented as of this encounter
--- OUTSIDE RECORDS SUMMARY | 2025-03-26 18:22 | XMS_ITS | Encounter Summary ---
Author Organization [facility] Address [address] [address] Care Team Providers Care Faceter Name Role Phone Fan John MD Primary Care Provider [phone] Encounter Details Date Type Department Care Team (Latest Contact Info) Description 03/17/1998 Orders Only Marc Regalado MD [address] [place] [address] Social History Tobacco Use Types Packs/Day Years [...] on filedocumented in this encounter Care Teams Faceter Relationship Specialty [place] [address] [place] [address] PCP - General Family Practice 08/21/22 documented as of this encounter
--- OUTSIDE RECORDS SUMMARY | 2025-03-26 18:22 | XMS_ITS | Encounter Summary ---
Author Organization [facility] Address [address], [place] [address] Care Team Providers Care Cork Pressing Machine Operator Name Role Phone Fan John MD Primary Care Provider [phone] Encounter Details Date Type Department Care Team (Latest Contact Info) Description 04/14/1997 Orders Only Nevaeh Charles Social History Tobacco [...] on filedocumented in this encounter Care Teams Cork Pressing Machine Operator Relationship Specialty [place] [address] [place] [address] PCP - General Family Practice 08/21/22 documented as of this encounter
--- OUTSIDE RECORDS SUMMARY | 2025-03-26 18:22 | XMS_ITS | Encounter Summary ---
Author Organization [facility] Address [address] [address] Care Team Providers Care Gold Miner Blasting Name Role Phone Fan John MD Primary Care Provider [phone] Encounter Details Date Type Department Care Team (Late st Contact Info) Description 11/27/2016 Consent for Procedure/Treatme nt [facility] INFORMED CONSENT RECORD Social History Tobacco Use Types Packs/Day Years Used Date Smoking Tobacco: Never Smokeless Tobacco: Never Alcohol Use Standard Drinks/Week Comments Yes 1.7 (1 standard drink = 0.6 oz p ure alcohol) Comments No Sex and Gender Information Value Date Recorded Sex Assigned at Female 01/11/2025 11:19 AM CDT Legal Sex Female 4:58 AM CDT Gender Identity Female 01/11/2025 11:19 AM CDT Sexual Orientation Straight 01/11/2025 11 :19 AM CDT 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
--- OUTSIDE RECORDS SUMMARY | 2025-03-26 18:22 | XMS_ITS | Encounter Summary ---
Author Organization [facility] Address [address] [address] Care Team Providers Care Video Conference Specialist Name Role Phone Fan John MD Primary Care Provider [phone] Encounter Details Date Type Department Care Team (Latest Contact Info) Description 04/26/1999 Orders Only Laney Vilchis MD [address] [address] Social History Tobacco Use Types Packs/Day Years [...] on filedocumented in this encounter Care Teams Video Conference Specialist Relationship Specialty [place] [address] [place] [address] PCP - General Family Practice 08/21/22 documented as of this encounter
--- OUTSIDE RECORDS SUMMARY | 2025-03-26 18:22 | XMS_ITS | Encounter Summary ---
Author Organization [facility] Address [address] [address] Care Team Providers Care Optoelectronics Engineer Name Role Phone Tip Bryant MD Primary Care Provider [phone] Reason for Visit * Reason Comments Refill SYNTHROID 88 MCG tab let [Pharmacy Med Name: SYNTHROID 88 MCG TABLET] Encounter Details Date Type Department Care Team (Late st Contact Info) Description 02/28/[address] [facility] [address] [place] [address] [phone] [place] [address] [place] [address] Refill (SYNTHROID 88 MCG tablet [Pharmacy Med Name: SYNTHROID 88 MCG TABLET]) Social History Tobacco Use Types Packs/Day Years [...] Industry Job Start Date Job End Date [employer] Not on file Not on file Not on file documented as of this encounter Nursing Notes * Leslye Gray - 03/02/2025 8:58 AM CDT Spoke to pt about scheduling a DHARA, she stated her brother is in ICU with cancer and this week is not a good time. She will schedule appt or c/b. * Tip Bryant MD - 03/01/2025 4:49 PM CDT 15 tab given courtesy She was supposed to repeat labs Please advise to do labs Tip Bryant MD 03/01/2025, 4:49 PM * Veronica Saleh - 03/01/2025 1:54 PM CDT Is patient to schedule a DHARA or an OV. Clinicians assessment/plan did not state if OV or DHARA. Please clarify. * Tiffanie Joe RN - 03/01/2025 12:10 PM CDT Further Assistance Needed on Refill from Log Haul Chain Feeder RN reviewed. Patient did not follow clinician's plan of care. Patient due for follow up Per provider's recommendation on 12/28/2024: Recheck tsh in 6 weeks Medication is still pending. Patient is due for an Office/Video Visit in the next 30 days. Call Patient and document using [employer]. After attempting to schedule patient: Please route to: Tip Bryant MD Requested Prescriptions Pending Prescriptions Disp Refills SYNTHROID 88 MCG tablet [Pharmacy Med Name: SYNTHROID 88 MCG TABLET] 90 Tablet Sig: TAKE 1 TABLET BY MOUTH EVERY DAY - BRAND SYNTHROID IS NOT COVERED BY INSURANCE * Loren Mccord Xrwcomm - 02/28/2025 9:01 AM CDT SYNTHROID 88 MCG tablet [Pharmacy Med Name: SYNTHROID 88 MCG TABLET] Medication started: 07/04/2019 Last ordered by TIP BRYANT: 12/28/2024 (62 days ago) QTY: 90, Refills: 0, Sig: take 1 tablet(88 mcg) by mouth daily. (changed) -> Unable to determine if sig has changed, review required. -> TSH is abnormal (8.17 mIU/L lies outside 0.2 mIU/L - 4.5 mIU/L) -> Refill x 12 months (until due for a(n) TSH check) -> Calculate the quantity and number of refills manually. Last qualifying visit: 12/28/2024 (with TIP BRYANT) Next scheduled visit: None TSH: 8.17 mIU/L on 12/23/2024 [facility] Embedded Refills, Reference: [id number], 02/28/2025 9:01:42 AM ERNIET, Tim: TYRONE Refill Centralized Services - Primary Care ([id number]) * Flex Refillwizabaldo Xrwcomm - 02/28/2025 9:01 AM CDT The following lab order(s) may be associated with the Result Note below: TSH, SENSITIVE Notes recorded by Cami Rincon on 12/24/2024 at 8:06 AM CDT Lab results to be discussed at upcoming visit. No acute concerns. * Loren Mccord - 02/28/2025 9:01 AM CDT The following lab order(s) may be associated with the following Patient Result Comment (Entered by Tip Bryant MD at 12/27/2024 10:05 AM): TSH, SENSITIVE Dear TammyResults - Thyroid function on the lower side slightly. Urine protein normal. Diabetes slight worsening. Liver function slight worsening. Discuss at appointment tomorrow. Tip Bryant MD 12/27/2024, 10:04 AM documented in this encounter Plan of Treatment Not on file documented as of this encounter Visit Diagnoses Diagnosis Hypothyroidism, unspecified type (HRC) documented in this encounter Care Teams Optoelectronics Engineer Relationship Specialty [place] [address] [place] [address] PCP - General Family Practice 08/21/22 documented as of this encounter
--- OUTSIDE RECORDS SUMMARY | 2025-03-26 18:22 | XMS_ITS | Encounter Summary ---
Author Organization [facility] Address [address] [address] Care Team Providers Care Caregivers Homecare Name Role Phone Fan John MD Primary Care Provider [phone] Encounter Details Date Type Department Care Team (Late st Contact Info) Description 03/10/2025 Results Follow-Up [facility] [address] [place] [address] [place] [address] [place] [address] Social History Tobacco Use Types Packs/Day Years [...] Industry Job Start Date Job End Date [employer] Not on file Not on file Not on file documented as of this encounter Plan of Treatment Not on file documented as of this encounter Visit Diagnoses Not on filedocumented in this encounter Care Teams Caregivers Homecare Relationship Specialty [place] [address] [place] [address] PCP - General Family Practice 08/21/22 documented as of this encounter
--- OUTSIDE RECORDS SUMMARY | 2025-03-26 18:22 | XMS_ITS | Encounter Summary ---
Author Organization [facility] Address [address], [place] [address] Care Team Providers Care Optical Systems Engineer Name Role Phone Fan John MD Primary Care Provider [phone] Encounter Details Date Type Department Care Team (Latest Contact Info) Description 09/08/1997 Orders Only Marc Regalado MD [address] [place] [address] Social History Tobacco Use Types Packs/Day Years [...] on filedocumented in this encounter Care Teams Optical Systems Engineer Relationship Specialty [place] [address] [place] [address] PCP - General Family Practice 08/21/22 documented as of this encounter
--- OUTSIDE RECORDS SUMMARY | 2025-03-26 18:22 | XMS_ITS | Encounter Summary ---
Author Organization [facility] Address [address] [address] Care Team Providers Care Child Care Counselor Name Role Phone Fan John MD Primary Care Provider [phone] Encounter Details Date Type Department Care Team (Latest Contact Info) Description 01/23/1996 Orders Only Marcelo Sterling Social History Tobacco [...] on filedocumented in this encounter Care Teams Child Care Counselor Relationship Specialty [place] [address] [place] [address] PCP - General Family Practice 08/21/22 documented as of this encounter
--- OUTSIDE RECORDS SUMMARY | 2025-03-26 18:22 | XMS_ITS | Encounter Summary ---
Author Organization [facility] Address [address] [address] Care Team Providers Care Oven Equipment Repairer Name Role Phone Fan John MD Primary Care Provider [phone] Encounter Details Date Type Department Care Team (Latest Contact Info) Description 01/14/2000 Orders Only Laney Vilchis MD [address] [address] Social History Tobacco Use Types Packs/Day Years [...] on filedocumented in this encounter Care Teams Oven Equipment Repairer Relationship Specialty [place] [address] [place] [address] PCP - General Family Practice 08/21/22 documented as of this encounter
--- OUTSIDE RECORDS SUMMARY | 2025-03-26 18:22 | XMS_ITS | Encounter Summary ---
Author Organization [facility] Address [address] [address] Care Team Providers Care Search Marketing Analyst Name Role Phone Fan John MD Primary Care Provider [phone] Encounter Details Date Type Department Care Team (Latest Contact Info) Description 01/21/1996 Orders Only García Henley Social History Tobacco Use Types Packs/Day Years [...] on filedocumented in this encounter Care Teams Search Marketing Analyst Relationship Specialty [place] [address] [place] [address] PCP - General Family Practice 08/21/22 documented as of this encounter
--- OUTSIDE RECORDS SUMMARY | 2025-03-26 18:22 | XMS_ITS | Encounter Summary ---
Author Organization [facility] Address [address] [address] Care Team Providers Care Miller Head Wet Process Name Role Phone Fan John MD Primary Care Provider [phone] Encounter Details Date Type Department Care Team (Latest Contact Info) Description 12/26/1995 Orders Only Nevaeh Charles Social History Tobacco [...] on filedocumented in this encounter Care Teams Miller Head Wet Process Relationship Specialty [place] [address] [place] [address] PCP - General Family Practice 08/21/22 documented as of this encounter
--- OUTSIDE RECORDS SUMMARY | 2025-03-26 18:22 | XMS_ITS | Encounter Summary ---
Author Organization [facility] Address [address] [address] Care Team Providers Care Surface Supply Breathing Apparatus Name Role Phone Fan John MD Primary Care Provider [phone] Encounter Details Date Type Department Care Team (Latest Contact Info) Description 07/19/1997 Orders Only Marc Regalado MD [address] [place] [address] Social History Tobacco Use Types Packs/Day Years [...] on filedocumented in this encounter Care Teams Surface Supply Breathing Apparatus Relationship Specialty [place] [address] [place] [address] PCP - General Family Practice 08/21/22 documented as of this encounter
--- OUTSIDE RECORDS SUMMARY | 2025-03-26 18:22 | XMS_ITS | Encounter Summary ---
Author Organization [facility] Address [address] [address] Care Team Providers Care Meter Tester Name Role Phone Fan John MD Primary Care Provider [phone] Encounter Details Date Type Department Care Team (Latest Contact Info) Description 05/25/1996 Orders Only Nevaeh Charles Social History Tobacco [...] on filedocumented in this encounter Care Teams Meter Tester Relationship Specialty [place] [address] [place] [address] PCP - General Family Practice 08/21/22 documented as of this encounter
--- OUTSIDE RECORDS SUMMARY | 2025-03-26 18:22 | XMS_ITS | Encounter Summary ---
Author Organization [facility] Address [address] [address] Care Team Providers Care Surveillance Supervisor Name Role Phone Fan John MD Primary Care Provider [phone] Encounter Details Date Type Department Care Team (Latest Contact Info) Description 08/19/1994 Orders Only Andre Ramesh MD Social History Tobacco Use Types Packs/Day [...] on filedocumented in this encounter Care Teams Surveillance Supervisor Relationship Specialty [place] [address] [place] [address] PCP - General Family Practice 08/21/22 documented as of this encounter
--- OUTSIDE RECORDS SUMMARY | 2025-03-26 18:22 | XMS_ITS | Encounter Summary ---
Author Organization [facility] Address [address], [place] [address] Care Team Providers Care Trap Operator Name Role Phone Fan John MD Primary Care Provider [phone] Encounter Details Date Type Department Care Team (Latest Contact Info) Description 02/13/1996 Orders Only Nevaeh Charles Social History Tobacco [...] on filedocumented in this encounter Care Teams Trap Operator Relationship Specialty [place] [address] [place] [address] PCP - General Family Practice 08/21/22 documented as of this encounter
--- OUTSIDE RECORDS SUMMARY | 2025-03-26 18:22 | XMS_ITS | Encounter Summary ---
[facility] Address [address], [place] [address] Care Team Providers Care Gang Vibrator Operator Name Role Phone Fan John MD Primary Care Provider [phone] Reason for Visit * Reason Onset Date Comments Refill 03/15/2025 ERRONEOUS ENTRY 03/15/2025 Encounter Details Date Type Department Care Team (Late st Contact Info) Description 03/15/2025 Refill [facility] [address] [place] [phone] [place] [address] [place] [phone] Refill; ERRONEOUS ENTRY Social History Tobacco Use Types Packs/Day Years [...] 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
--- OUTSIDE RECORDS SUMMARY | 2025-03-26 18:22 | XMS_ITS | Encounter Summary ---
[facility] Address [address], [place] [address] Care Team Providers Care Web Merchandiser Name Role Phone Fan John MD Primary Care Provider [phone] Encounter Details Date Type Department Care Team (Late st Contact Info) Description 05/21/2019 Correspondence None No Primary/Referring, Phy MEDICAL EQUIPMENT PROOF OF DELIVERY Social History Tobacco Use Types Packs/Day Years Used Date Smoking Tobacco: Never Smokeless Tobacco: Never Alcohol Use Standard Drinks/Week Comments Yes 1.7 (1 standard drink = 0.6 oz p ure alcohol) 3x/wk Comments No Sex and Gender Information Value Date Recorded Sex Assigned at Female 01/11/2025 11:19 AM CDT Legal Sex Female 4:58 AM CDT Gender Identity Female 01/11/2025 11:19 AM CDT Sexual Orientation Straight 01/11/2025 11 :19 AM CDT 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
--- OUTSIDE RECORDS SUMMARY | 2025-03-26 18:22 | XMS_ITS | Encounter Summary ---
Author Organization [facility] Address [address], [place] [address] Care Team Providers Care Superintendent Oil Field Drilling Name Role Phone Fan John MD Primary Care Provider [phone] Encounter Details Date Type Department Care Team (Latest Contact Info) Description 03/04/1996 Orders Only Marcelo Sterling Social History Tobacco [...] on filedocumented in this encounter Care Teams Superintendent Oil Field Drilling Relationship Specialty [place] [address] [place] [address] PCP - General Family Practice 08/21/22 documented as of this encounter
--- OUTSIDE RECORDS SUMMARY | 2025-03-26 18:22 | XMS_ITS | Encounter Summary ---
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 Not on file Not on file documented as of this encounter Plan of Treatment Not on file documented as of this encounter Results * Sodium (09/01/2018 7:23 AM PIPELINE CONSTRUCTION INSPECTOR) Sodium 142 136 - 145 mmol/L [facility] 09/01/2018 7:23 AM PIPELINE CONSTRUCTION INSPECTOR 09/01/2018 7:24 AM PIPELINE CONSTRUCTION INSPECTOR Narrative [facility] - 09/01/2018 1:13 PM PIPELINE CONSTRUCTION INSPECTOR Performed at [facility], [address] [place] [phone] [place] Renee Vera MD LAB_1 Final Resul t Performing Organization Address [facility] de Phone Number [facility] [phone] * Potassium (09/01/2018 7:23 AM PIPELINE CONSTRUCTION INSPECTOR) Potassium 3.6 3.5 - 5.1 mmol/L [facility] 09/01/2018 7:23 AM PIPELINE CONSTRUCTION INSPECTOR 09/01/2018 7:24 AM PIPELINE CONSTRUCTION INSPECTOR Narrative [facility] - 09/01/2018 1:13 PM PIPELINE CONSTRUCTION INSPECTOR Performed at [facility], [address] [place] [address] [place] Renee Vera MD LAB_1 Final Resul t Performing Organization Address [facility] de Phone Number [facility] [phone] * Creatinine / GFR (09/01/2018 7:23 AM PIPELINE CONSTRUCTION INSPECTOR) Creatinine 0.91 0.55 - 1.02 mg/dl [facility] GFR, Estimated >60 >60 ml/min/1.7 3m2 [facility] GFR, Est., If Black >60 >60 ml/min/1.7 3m2 [facility] 09/01/2018 7:23 AM PIPELINE CONSTRUCTION INSPECTOR 09/01/2018 7:24 AM PIPELINE CONSTRUCTION INSPECTOR Narrative [facility] - 09/01/2018 1:13 PM PIPELINE CONSTRUCTION INSPECTOR Performed at [facility], [address] [place] [address] [place] Renee Vera MD LAB_1 Final Resul t Performing Organization Address [facility] de Phone Number [facility] [phone] documented in this encounter Visit Diagnoses Diagnosis Encounter for long-term (current) use of medications- Primary Encounter for long-term (current) use of other medications Encounter for long-term (current) use of medications Encounter for long-term (current) use of other medications Abnormal laboratory test Other abnormal clinical finding Pure hypercholesterolemia documented in this encounter Care Teams Vineyard Worker Relationship Specialty [place] [address] [place] [address] PCP - General Family Practice 08/21/22 documented as of this encounter
--- OUTSIDE RECORDS SUMMARY | 2025-03-26 18:23 | XMS_ITS | Encounter Summary ---
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
--- OUTSIDE RECORDS SUMMARY | 2025-03-26 18:23 | XMS_ITS | Encounter Summary ---
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
--- OUTSIDE RECORDS SUMMARY | 2025-03-26 18:23 | XMS_ITS | Clinical Summary ---
Author Organization [facility] Address [address] [place] [address] Care Team Providers Care Healthcare Project Manager Name Role Phone Pcp, No Primary Care Provider Unavailabl e Medications HYDROcodone-shawna taminophen (NORCO) 5-325 mg per tabletIndicatio ns:Injury of right knee, initial encounter,Sprai n of anterior talofibular ligament of right ankle, initial encounter Take 1 Tablet by mouth every 4 hours if needed for Pain. Max acetaminophen dose: 4000 mg in 24 hrs. 15 Tablet 2 Active Social History Tobacco Use Types Packs/Day Years Used Date Smoking Tobacco: Never Assessed Comments Unknown Sex and Gender Information Value Date Recorded Sex Assigned at Not on file Legal Sex Female 10:29 AM CHAIN MAKER MACHINE Gender Identity Not on file Sexual Orientation Not on file Last Filed Vital Signs Vital Sign Reading Time Taken Comments Blood Pressure 164/92 09/12/2021 10:59 AM CHAIN MAKER MACHINE Pulse 73 09/12/2021 10:59 AM CHAIN MAKER MACHINE Temperature 36.8 C (98.3 F) 09/12/2021 10:38 AM CHAIN MAKER MACHINE Respiratory Rate 16 09/12/2021 10:38 AM CHAIN MAKER MACHINE Oxygen Saturation 97% 09/12/2021 10:59 AM CHAIN MAKER MACHINE Inhaled Oxygen Concentration - - Weight 81.6 kg (180 lb) 09/12/2021 10:38 AM CHAIN MAKER MACHINE Height 162.6 cm (5' 4) 09/12/2021 10:38 AM CHAIN MAKER MACHINE Body Mass Index 30.9 09/12/2021 10:38 AM CHAIN MAKER MACHINE Plan of Treatment Health Maintenance Due Date Last Done Comments Tetanus booster 1972 Depression screening for age 12+ 1973 HIV for age 15-65 1976 BMI (ht and wt on same day) for age 18+ 11/09/1979 Hepatitis C screening for ag e 18-79 11/09/1979 Pap test for age 21-65 1982 Colonoscopy through age 75 2006 Lipids for age 45-75 2006 Mammogram for age 45-75 2006 Pneumococcal series for age 50+ (1 of 1 - PCV) 11/09/2011 Zoster (shingles) series for age 50+ (1 of 2) 11/09/2011 COVID-19 vaccine series (3 - 2023- season) 2024 12/11/2020, 11/13/2020 Influenza Vaccine (#1) 2025 RSV vaccine for adults or (1 - 1-dose 75+ series) 2036 Hepatitis B series for 19+ Aged Out N o longer eligible based on patient's age to complete this topic Insurance [facility] Care Teams Healthcare Project Manager Relationship Specialty Start Date End Date Pcp, No . PCP - General 09/12/21
--- OUTSIDE RECORDS SUMMARY | 2025-03-26 18:23 | XMS_ITS | Encounter Summary ---
[facility] Address [address] [address] Care Team Providers Care Desktop Publisher Name Role Phone Fan John MD Primary Care Provider [phone] Encounter Details Date Type Department Care Team (Late st Contact Info) Description 10/10/2015 Correspondence Travel and Tropical Medicine [address] [facility] 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
--- OUTSIDE RECORDS SUMMARY | 2025-03-26 18:23 | XMS_ITS | Encounter Summary ---
Author Organization [facility] Address [address] [address] Care Team Providers Care Movable Bulkhead Installer Name Role Phone Fan John MD Primary Care Provider [phone] Encounter Details Date Type Department Care Team (Late st Contact Info) Description 10/10/2015 Correspondence [facility] Travel and Tropical Medicine [address] [facility]. 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
--- OUTSIDE RECORDS SUMMARY | 2025-03-26 18:23 | XMS_ITS | Clinical Summary ---
Author Organization [facility] Address [address] [place] [address] Care Team Providers Care Poured Concrete Wall Technician Name Role Phone Renee Vera MD Primary Care Provider Unav ailable Allergies Active Allergy Reactions Criticality Noted Date Comments Cortisone 03/25/2012 Methylprednisolone 05/27/2021 Vertigo Prednisone 03/25/2012 Medications ATENOLOL PO Take 50 mg by mouth daily. Active Levothyroxine Sodium (SYNTHROID PO) Take 88 mcg by mouth. Active SIMVASTATIN PO Take 20 mg by mouth At Bedtime. Active hydrochlorothiaz dimas (MICROZIDE) 12.5 MG capsule Take 25 mg by mouth every morning. Active VITAMIN D, CHOLECALCIFEROL, PO Take 2,000 Units by mouth daily. Active HYDROcodone-acet aminophen 5-325 MG per tablet 1 to 2 tabs by mouth every 4 to 6 hrs. as needed for pain 24 tablet 0 03/25/2012 Active methocarbamol (ROBAXIN) 750 MG tablet 1 tab by mouth every 4 hrs. or 2 tabs every 8 hrs. as needed for muscle spasm. 40 tablet 0 03/25/2012 Active EPINEPHrine (ANY BX GENERIC EQUIV) 0.3 MG/0.3ML injection 2-pack Inject 0.3 mLs (0.3 mg) into the muscle once as needed 1 each 1 05/27/2021 Active Social History Tobacco Use Types Packs/Day Years Used Date Smoking Tobacco: Never Assessed Adolescent Education Answer Date Record ed Getting School Help Needed Not on file 05/11 Comments No Sex and Gender Information Value Date Recorded Sex Assigned at Not on file Legal Sex Female 3:15 AM BLOOD BANK SPECIALIST Gender Identity Not on file Sexual Orientation Not on file Last Filed Vital Signs Vital Sign Reading Time Taken Comments Blood Pressure 146/78 05/27/2021 12:30 PM CDT Pulse 66 05/27/2021 12:30 PM CDT Temperature 36.9 C (98.4 F) 05/27/2021 11:06 AM CDT Respiratory Rate 20 05/27/2021 11:06 AM CDT Oxygen Saturation 96% 05/27/2021 12:30 PM CDT Inhaled Oxygen Concentration - - Weight 88.5 kg (195 lb) 03/07/2020 7:55 AM CDT Height - - Body Mass Index - - Plan of Treatment Not on file Care Teams Poured Concrete Wall Technician Relationship Specialty Start Date End Date Renee Vera MD PCP - General Internal Medicine 03/07/20
[2025-03-26] MEDS: SULFA/TRIMETHOPRIM 800/160 1 TAB PO (18:33)
[2025-03-26] MEDS: IBUPROFEN 200 MG TABLET 600 MG PO (18:33)
--- NOTE | 2025-03-26 19:32 | ED.FEMALEGU ---
HPI - Female Genitourinary General Date Seen: 03/26/25 Chief complaint: Urogenital Problems, Female Stated complaint: UTI Time Seen by Provider: 03/26/25 17:52 Source: patient Mode of arrival: ambulatory Limitations: no limitations History of Present Illness HPI Narrative: Patient is a delightful 64-year-old female who presents here with a UTI, she has all the cardinal symptoms she tells me she gets he is probably once every couple years, she does not do something you will become a raging UTI she tells me lots of pressure lots of urgency and frequency, associated with this she normally gets Bactrim and helps, she took 200 mg ibuprofen at home and this did not help so she came to the emergency room. No history of hospitalizations secondary to pyelonephritis or worsening symptoms. This is an post coital UTI either, no vaginal bleeding no blood in her urine or any smell to this, denies any abdominal pain at all or any back pain associated with this fevers chills or sweats. Pertinent past history: recurrent UTIs Related Data Home Medications ?Medication ?Instructions ?Recorded ?Confirmed hydrochlorothiazide PO 03/26/25 levothyroxine .ROUTE 03/26/25 metformin .ROUTE 03/26/25 Allergies Allergy/AdvReac Type Severity Reaction Status Date / Time prednisone Allergy Intermediate Fainting Verified 03/26/25 17:45 Review of Systems Status of ROS: Reports: 10 or more systems reviewed and unremarkable except as noted in History and below [facility] Social History Smoking Status: Never smoker How often do you have a drink containing alcohol: never AUDIT-C Alcohol total score: 0 Non-prescribed substance use: denies use Exam Narrative: Exam Narrative: On examination here she is in no apparent distress she is seen in room 2 she is nontoxic with normal vital signs, her abdomen is soft there is no guarding no organomegaly bowel sounds are normal no CVA tenderness she moves all extremities independently well, Const: Vital Signs, click to edit/add: Vital Signs - 24 hr 03/26/25 17:47 Temperature 97.2 F L Pulse Rate [Pulse Oximeter] 89 Respiratory Rate 18 Blood Pressure [Ri ght Upper Arm] 138/85 Pulse Oximetry 94 Oxygen Delivery Me thod Room Air Course Vital Signs Vital signs: Initial Vital Signs Temperature 97.2 F L 03/26/25 17:47 Temperature Source Temporal Artery Scan 03/26/25 17:47 Pulse Rate 89 03/26/25 17:47 Respiratory Rate 18 03/26/25 17:47 Blood Pressure 138/85 03/26/25 17:47 Blood Pressure Mean 102 03/26/25 17:47 Pulse Oximetry 94 03/26/25 17:47 Oxygen Delivery Method Room Air 03/26/25 17:47 Vital Signs Temperature 97.2 F L 03/26/25 17:47 Pulse Rate 89 03/26/25 17:47 Respiratory Rate 18 03/26/25 17:47 Blood Pressure 138/85 03/26/25 17:47 Pulse Oximetry 94 03/26/25 17:47 Oxygen Delivery Method Room Air 03/26/25 17:47 Temperature 97.2 F L 03/26/25 17:47 Pulse Rate 89 03/26/25 17:47 Respiratory Rate 18 03/26/25 17:47 Blood Pressure 138/85 03/26/25 17:47 Pulse Oximetry 94 03/26/25 17:47 Oxygen Delivery Method Room Air 03/26/25 17:47 Medications Administered Medications: Discontinued Medications Generic Name Dose Route Start Last Admin Trade Name Artq PRN Reason Stop Dose Admin Ibuprofen 600 mg 03/26/25 18:04 03/26/25 18:33 Ibuprofen 200 Mg Tablet PO 03/26/25 18:05 600 mg ONCE ONE Administration Trimethoprim/Sulfamethoxazole 1 tab 03/26/25 18:04 03/26/25 18:33 Sulfa/Trimethoprim 800/160 1 Tab PO 03/26/25 18:05 1 tab ONCE ONE Administration MDM - Female Genitourinary Lab Data Attestation: I reviewed the patient's lab results. Lab results narrative: I do think the labs are basically negative here out sepsis she has trace and does have some white cells because of her frequency of likely is a UTI, did offer her treatment she falls within the guidelines, and she was agreeable to this. Labs: Lab Results 03/26/25 Range/Units 17:58 Urine Color Yellow (Yellow) Urine Appearance Clear (Clear) Urine pH 5.0 (5.0-8.5) Ur Specific [place] >= 1.030 (1.000-1.030) Urine Protein Negative (Negative) Urine Glucose (UA) Negative (Negative) Urine Ketones Negative (Negative) Urine Blood Negative (Negative) Urine Nitrite Negative (Negative) Urine Bilirubin Negative (Negative) Urine Urobilinogen 0.2 (0.2-1.0) Ur Leukocyte Esterase Trace A (Negative) Urine RBC 2-5 A (0-2) Urine WBC 2-5 (0-5) Ur Squamous Epith Cells Few (None-Few) Urine Bacteria Few A (None) Discharge Plan Discharge Clinical Impression: UTI (urinary tract infection) Patient Disposition: Home, Self-Care Condition: Stable Instructions: Urinary Tract Infection in Women (DC) Additional Instructions: Home rest medications as directed ibuprofen 600 mg t.i.d., you can buy some [id number] Pyridium also. INCreasing nausea vomiting fevers chills or sweats then I would return. Interestingly your urine did not show a raging bladder infection but sometimes if you peeing a lot it will be shown. Culture will be definitive Activity Level: Light activity Prescriptions: No Action levothyroxine [Synthroid] .ROUTE hydrochlorothiazide PO metformin .ROUTE Follow Up/Referrals: Provider,Not a Local [Primary Care Provider, Family Practice] Stand Alone Forms: [employer] Info Instructions
== END 2025-03-26 18:39 | disposition home or self-care (01) ==
PROVIDERS: Emergency Provider Family Medicine
DX: N39.0 Urinary tract infection, site not specified (principal)
CPT/HCPCS: 81001; 87086; 99283; A9270